=== PATIENT | female | born 1980 | race Caucasian/White ===

== ENCOUNTER → 2016-07-23 | Outpatient (CLI) | payer BC ==
[~2016-07-23] MED LIST: ADV250INH INH; ALBU17IN2 PO; MOTR200T44 PO; PRENTAB13 PO; TYLE325T5 PO
[2016-07-23 12:43] LABS: BASO % 0.2 % (0.0-1.0); EOS # 0.1 K/mm3 (0.0-0.50); EOS % 2.4 % (0.0-3.0); LARGE UNSTAINED CELL # 0.1 K/mm3 (0.0-0.4); LARGE UNSTAINED CELL % 2.2 % (0.0-4.0); LYMPH # 1.9 K/mm3 (1.5-4.5); LYMPH % 32.4 % (24.0-44.0); MEAN CORPUSCULAR HEMOGLOBIN 28.6 pg (27.0-33.0); MEAN CORPUSCULAR HGB CONC 32.9 g/dl (32.0-36.5); MEAN CORPUSCULAR VOLUME 87.1 fl (80.0-96.0); MONO # 0.4 K/mm3 (0.0-0.8); MONO % 6.2 % (0.0-5.0); NEUTROPHILS # 3.3 K/mm3 (1.8-7.7); NEUTROPHILS % 56.7 % (36.0-66.0); PLATELET COUNT, AUTOMATED 246 k/mm3 (150-450); RED CELL DISTRIBUTION WIDTH 14.1 % (11.5-14.5); WHITE BLOOD COUNT 5.8 K/mm3 (4.0-10.0)
[2016-07-23 13:32] LABS: HBsAg Prenatal NEGATIVE (NEGATIVE)
== END ==
LOC: M SMT 10:17
PROVIDERS: ATTEND Advanced Practice Midwife
DX: Z36 Encounter for antenatal screening of mother (principal); Z3A.00 Weeks of gestation of pregnancy not specified

== ENCOUNTER → 2016-08-01 | Outpatient (CLI) | payer BC | LOC: M SMT 08:31 | PROVIDERS: ATTEND Advanced Practice Midwife | DX: Z34.81 Encounter for supervision of other normal pregnancy, first trimester (principal) ==

== ENCOUNTER → 2016-10-17 | Outpatient (CLI) | payer MEDICAID ==
[~2016-10-17] MED LIST changes: -PRENTAB13 PO; +PRENTAB20 PO
--- NOTE | 2016-10-17 15:27 | REP ---
OBSTETRIC SONOGRAPHY: HISTORY: Supervision of for anatomy. FINDINGS: Scanning through the gravid uterus demonstrates a viable single intrauterine gestation in variable lie. motion is observed and heart rate is recorded at 147 beats per minute. A posterior grade 0 placenta is seen without evidence of previa or abruption. Amniotic fluid is subjectively normal. Closed cervical length measures 4.5 cm viewed transabdominally. No extrauterine abnormalities observed. Exam quality was inhibited by maternal body habitus. No anomaly is seen. spine, kidneys, four-chamber heart and outflow tract views are poorly seen due to maternal body habitus and position. The following additional anatomic structures are identified and felt to be sonographically unremarkable: cranium, choroid plexus, cavum, cerebellum and posterior fossa, face and profile, lungs, diaphragm, left-sided stomach, abdominal wall cord insertion, three-vessel umbilical cord, urinary bladder, upper and lower extremities. Biometry Chart: BPD 4.6 cm = 19 weeks 6 days HC 17.2 cm = 19 weeks 5 days AC 15.5 cm = 20 weeks 5 days FL 3.4 cm = 20 weeks 5 days HL 3.2 cm = 20 weeks 5 days CD 1.9 cm = 18 weeks 6 days HC/AC ratio normal 1.11. Cephalic index normal 0.74. Estimated weight 364 grams, 0 pounds 12 ounces, 66th percentile for 20 weeks 0 days. IMPRESSION: Viable single intrauterine gestation at 20 weeks 0 days by today's composite sonographic criteria. RO by today's sonography March 06, 2017. No anomalies seen. anatomic survey is incomplete as above. Signed by Dandy Segundo MD 10/17/2016 06:21 P
== END ==
LOC: M SMT 13:43
PROVIDERS: ATTEND Specialist
DX: Z36 Encounter for antenatal screening of mother (principal); Z3A.20 20 weeks gestation of pregnancy

== ENCOUNTER → 2016-11-06 | Outpatient (CLI) | payer MEDICAID ==
--- NOTE | 2016-11-06 16:40 | REP ---
Obstetric ultrasound for anatomy follow-up: The prior study of 10/17/2016 was adequately demonstrate the spine, kidneys, four-chamber view of the heart and cardiac outflow tracts. Study today is for follow-up of these structures. Remainder of the anatomy was unremarkable previously. There is a single intrauterine gestation. position is variable. There is motion. heart rate is 120 beats per minute. The pylorus placenta is posterior. There is no placenta previa or abruptio. Placenta demonstrates grade zero maturity. Subjectively amniotic fluid volume is normal. Cervix is 4.0 cm in length. Gestational age by the ultrasound today is 23 weeks 2 days with an RO of 03/03/2017. Gestational age by the first ultrasound during this gestation is 22-week 6 days. weight is 642 grams (1 pound, 6 ounces). This is the 77th percentile for 22 weeks 6 days. On the study today the four-chamber view of the heart and the cardiac right and left ventricular outflow tracts are adequately demonstrated and are unremarkable. The kidneys are adequately demonstrated and are unremarkable. The spine is again suboptimally demonstrated because of position. The remainder of the anatomy was unremarkable previously and is unremarkable today. Follow-up study of the spine might be considered. Sign taking Signed by Ritchie Dewey MD 11/06/2016 04:33 P
== END ==
LOC: M SMT 14:57
PROVIDERS: ATTEND Advanced Practice Midwife
DX: Z36 Encounter for antenatal screening of mother (principal); Z3A.22 22 weeks gestation of pregnancy

== ENCOUNTER → 2016-11-26 | Outpatient (CLI) | payer MEDICAID ==
--- NOTE | 2016-11-26 12:16 | REP ---
OB ULTRASOUND: Real-time sonographic evaluation of the gravid uterus performed. There is a single living intrauterine gestation. Estimated gestational age 26 weeks 1 day based on today's ultrasound EDC 03/03/2017. BPD 62 mm = 21 weeks 5 days HC 237 mm = 25 weeks 5 days AC 221 mm = 26 weeks 4 days Femur length 49 mm = 26 weeks 3 days HC/AC ratio 1.07 within normal range. Estimated weight 924 grams. Cervix closed and measures 5 cm in length. heart rate 140 beats per minute. SEEN/GROSSLY UNREMARKABLE Lateral ventricles Yes Posterior fossa No Upper lip Yes Four-chamber heart Yes LVOT Yes RVOT Yes Stomach Yes Cord insertion Yes Three vessel cord Yes Kidneys Yes Bladder Yes Spine No position: Vertex. Placenta: Posterior and grade 0 with no previa or abruption. Amniotic fluid: Within normal limits. Signed by Ritchie Mooney MD 11/26/2016 04:02 P
== END ==
LOC: M RAD 08:26
PROVIDERS: ATTEND Specialist
DX: Z36 Encounter for antenatal screening of mother (principal); Z3A.26 26 weeks gestation of pregnancy

== ENCOUNTER → 2016-12-19 | Outpatient (CLI) | payer MEDICAID ==
--- NOTE | 2016-12-19 10:34 | REP ---
FOLLOWUP OB ULTRASOUND: 12/19/2016 COMPARISON: 11/26/2016, 11/06/2016, 10/17/2016. CLINICAL HISTORY: Followup, incomplete anatomy screen. FINDINGS: There is a single intrauterine gestation in vertex position. The cervix is 3 cm long and closed. There is a posterior fundal grade 1 placenta without previa or abruption. Amniotic fluid volume is visually normal. The index measurement is 10.2 cm. Normal range 9.2 to 23.1. Largest fluid pocket is 4.9 cm, normal. Mid cord umbilical artery Doppler shows S/D ratio of 2.82 with normal forward diastolic flow and resistive index of 0.65, all normal. BIOMETRY: BPD 7.4 cm = 29 weeks 5 days HC 27.8 cm = 30 weeks 3 days AC 25.4 cm = 29 weeks 4 days FL 5.9 cm = 30 weeks 4 days HL 5.1 cm = 29 weeks 4 days This gives average ultrasound age of 30 weeks with EDC 02/27/2017. By initial ultrasound, she would be 29 weeks with EDC 03/06/2017. Estimated weight 1494 grams or 3 pounds 4 ounces is 64th percentile for dating based on initial ultrasound. Anatomy screen today shows cranial vault, cavum septum pellucidum, lungs, three-vessel cord, kidneys and bladder to be unremarkable. The anatomy screening is complete, except that the spine is still never optimally visualized in its entirety in transverse and longitudinal projections. Segments visible were grossly intact. heart rate 140 and regular. The cord is at least draped over the neck, cannot entirely exclude the possibility of a nuchal cord. IMPRESSION: 1. Single intrauterine gestation in vertex presentation with closed 3 cm long cervix, visually normal amniotic fluid volume and an index of 10.1, normal cord Doppler and heart rate of 140 BPM. Cervix 3 cm long and closed. 2. Average ultrasound age 30 weeks by today's study, 29 weeks by the initial exam with a known EDC of 03/06/2017. Estimated weight 64th percentile for that dating. 3. No visible anomalies but the anatomy screen is still incomplete in that the spine has not yet been fully evaluated in transverse and longitudinal projections despite multiple attempts. 4. Normal interval growth. Fundal grade 1 placenta without previa or abruption. Signed by Zander Guo MD 12/19/2016 11:40 A
== END ==
LOC: M LAB 08:56 → M RAD 08:56
PROVIDERS: ATTEND Specialist
DX: Z36 Encounter for antenatal screening of mother (principal); Z3A.30 30 weeks gestation of pregnancy

== ENCOUNTER → 2016-12-26 | Outpatient (CLI) | payer MEDICAID ==
[2016-12-26 14:38] LABS: BASO % 0.2 % (0.0-1.0); EOS # 0.1 K/mm3 (0.0-0.50); EOS % 1.5 % (0.0-3.0); LARGE UNSTAINED CELL # 0.1 K/mm3 (0.0-0.4); LYMPH # 1.2 K/mm3 (1.5-4.5); LYMPH % 16.9 % (24.0-44.0); MEAN CORPUSCULAR HEMOGLOBIN 30.8 pg (27.0-33.0); MEAN CORPUSCULAR HGB CONC 34.4 g/dl (32.0-36.5); MEAN CORPUSCULAR VOLUME 89.6 fl (80.0-96.0); MONO # 0.3 K/mm3 (0.0-0.8); MONO % 3.5 % (0.0-5.0); NEUTROPHILS # 5.6 K/mm3 (1.8-7.7); NEUTROPHILS % 76.9 % (36.0-66.0); PLATELET COUNT, AUTOMATED 236 k/mm3 (150-450); WHITE BLOOD COUNT 7.3 K/mm3 (4.0-10.0)
== END ==
LOC: M SMT 08:55
PROVIDERS: ATTEND Specialist
DX: Z36 Encounter for antenatal screening of mother (principal); Z3A.00 Weeks of gestation of pregnancy not specified

== ENCOUNTER → 2016-12-28 | Outpatient (CLI) | payer MEDICAID | LOC: M LAB 08:10 | PROVIDERS: ATTEND Obstetrics & Gynecology | DX: O09.523 Supervision of elderly multigravida, third trimester (principal); Z3A.00 Weeks of gestation of pregnancy not specified ==

== ENCOUNTER → 2017-02-01 | Outpatient (REF) | payer OTHER | LOC: M LAB REF 17:08 | PROVIDERS: ATTEND Obstetrics & Gynecology | DX: Z36.85 Encounter for antenatal screening for Streptococcus B (principal); Z3A.00 Weeks of gestation of pregnancy not specified ==

== ENCOUNTER 2017-02-26 11:27 | Inpatient (IN) | payer OTHER ==
[~2017-02-26] VITALS: Ht 149.9 cm; Wt 114.9 kg
[2017-02-26 11:57] VITALS: BP 114/59
[2017-02-26] MEDS ORDERED: BREO1INH INH (12:19)
--- NOTE | 2017-02-26 13:29 | HPE ---
DATE OF ADMISSION: 02/26/2017 A 36-year-old G5, P2-2-0-4 female at 39-2/7 weeks' gestation by last menstrual period (LMP) consistent with 7-week ultrasound, estimated date of confinement (EDC) 03/03/2017, presents for labor induction. The patient has occasional contractions. She denies vaginal bleeding. COURSE: The patient initiated care at 8 weeks' gestation on 07/24/2016. Her first-trimester blood pressure was 126/76. Weight was 241 pounds. The patient had no complications. OBSTETRICAL HISTORY: 1. 2007, 35-week vaginal delivery, 4-pound 11-ounce female infant. 2. 2009, 39-week vaginal delivery, 7-pound 11-ounce female infant. 3. 2010, 40-week vaginal delivery, 8-pound 4-ounce male . 4. 2013, 35-week vaginal delivery, 5-pound 9-ounce female infant. MEDICAL HISTORY: Noncontributory. SURGICAL HISTORY: None. ALLERGIES: None. SOCIAL HISTORY: The patient is . Denies cigarettes, alcohol, or drug use. FAMILY HISTORY: Noncontributory. PHYSICAL EXAMINATION: Blood pressure 122/74, weight 256. She appears comfortable. HEAD AND NECK EXAMINATION: Normal. LUNGS: Clear. HEART: Regular rate and rhythm. ABDOMEN: Nontender, gravid. heart tones category 1. STERILE VAGINAL EXAMINATION: 1 cm, 50% effaced, -2 station, vertex. Contractions irregular. EXTREMITIES: Nontender. LABORATORIES: Blood type O positive, rubella immune, rapid plasma reagin (RPR) nonreactive. Hepatitis B and C negative. HIV negative. Group B streptococcus (GBS) positive on 02/01/2017. ASSESSMENT: A 36-year-old G5, P2-2-0-4 female at 39-2/7 weeks' gestation presents for labor induction. Risks of induction were discussed.
[2017-02-26 13:40] LABS: MEAN CORPUSCULAR HEMOGLOBIN 28.6 pg (27.0-33.0); MEAN CORPUSCULAR HGB CONC 32.5 g/dl (32.0-36.5); MEAN CORPUSCULAR VOLUME 88.1 fl (80.0-96.0); PLATELET COUNT, AUTOMATED 263 10^3/uL (150-450); RED CELL DISTRIBUTION WIDTH 14.6 % (11.5-14.5); WHITE BLOOD COUNT 8.5 10^3/uL (4.0-10.0)
[2017-02-26 14:05] VITALS: BP 94/53
[2017-02-26] MEDS: miSOPROStol 50 MCG 1/2 TAB (S0191) SL SCH ×2 (14:11→18:24)
[2017-02-26 16:09] VITALS: BP 140/63
[2017-02-26 16:16] VITALS: BP 136/72
[2017-02-26 17:21] VITALS: BP 134/63
[2017-02-26 18:22] VITALS: BP 136/84
[2017-02-26] MEDS ORDERED: PENICILLIN G POTASSIUM IV 5 MU in D5W MINI-BAG PLUS 100 ML IV STA (21:17)
[2017-02-26] MEDS ORDERED: OXYTOCIN 30 UNITS IN 0.9% NaCl 500ML IV BAG (J2590) As Ordered ONE (21:22)
[2017-02-26] MEDS ORDERED: MEASLES,MUMPS,RUBELLA VACCINE INJ (MMR-II) (90707) SC SCH (22:15)
[2017-02-26] MEDS ORDERED: DOCUSATE SODIUM 100 MG CAP PO PRN (22:15)
[2017-02-26] MEDS ORDERED: ACETAMINOPHEN 500 MG TAB PO PRN (22:15)
[2017-02-26] MEDS ORDERED: DIBUCAINE 1% OINTMENT 30GM TOP PRN (22:15)
[2017-02-26] MEDS ORDERED: METHYLERGONOVINE MALEATE 0.2 MG TAB PO PRN (22:15)
[2017-02-26] MEDS ORDERED: ONDANSETRON 4MG/2ML VIAL (J2405) IV PRN (22:15)
[2017-02-26] MEDS ORDERED: OXYTOCIN DRIP 30 UNITS in APPROPRIATE DILUENT 1 EA IV ONE (22:15)
[2017-02-26] MEDS ORDERED: RHOGAM 300 MCG (1500 IU) INJ (J2790) IM SCH (22:15)
[2017-02-26] MEDS ORDERED: IBUPROFEN 800 MG TAB PO PRN (22:15)
[2017-02-27] MEDS ORDERED: PENICILLIN G POTASSIUM IV 2.5 MU in APPROPRIATE DILUENT 1 EA IV SCH (01:00)
[2017-02-27 06:00] VITALS: BP 128/71
[2017-02-27] MEDS: PRENATAL VITAMINS CHEWABLE TABLET PO SCH (08:22)
--- NOTE | 2017-02-27 12:34 | DN ---
DATE: 02/26/2017 PREDELIVERY DIAGNOSIS: 39 weeks, labor induction. POSTDELIVERY DIAGNOSIS: Delivered. PROCEDURE: Spontaneous vaginal delivery. X [employer]AY EXAM[employer]: Dr. Ayan Sprague ANESTHESIA: None. ESTIMATED BLOOD LOSS: 300 mL. FINDINGS: 6 pound 9 ounce female . scores 7 and 9. DELIVERY SUMMARY: After a short second stage, the patient had a spontaneous delivery of a 6 pound 9 ounce female , scores 7 and 9 with no anesthesia. Tight nuchal cord times one was clamped and cut. Shoulders delivered with ease. The infant was handed to the mother and cried spontaneously. Placenta delivered spontaneously and appeared to be intact. The patient received IV Pitocin immediately after delivery of the placenta. Small first degree vaginal laceration, did not require repair. Sponge counts were correct.
[2017-02-27 17:46] VITALS: BP 130/87
[2017-02-28 06:23] VITALS: BP 124/83
[2017-02-28] MEDS: PRENATAL VITAMINS CHEWABLE TABLET PO SCH (08:18)
[2017-02-28] MEDS ORDERED: MOTR200T44 PO (11:01)
[2017-02-28] MEDS ORDERED: TYLE325T5 PO (11:01)
== END 2017-02-28 11:45 | disposition home or self-care (01) | DRG 560 ==
LOC: M LDI 11:27 → M OBS 02-27 00:01
PROVIDERS: ADMIT Specialist; ATTEND Specialist
PROC: 10E0XZZ Delivery of Products of Conception, External Approach (ICD-10-PCS; principal; 2017-02-26)
PROC: 3E0P7GC Introduction of Other Therapeutic Substance into Female Reproductive, Via Natural or Artificial Opening (ICD-10-PCS; 2017-02-26)
DX: O99.52 Diseases of the respiratory system complicating childbirth (principal); Z3A.39 39 weeks gestation of pregnancy; O99.824 Streptococcus B carrier state complicating childbirth; J45.909 Unspecified asthma, uncomplicated; Z37.0 Single live birth

== ENCOUNTER 2018-03-07 19:59 | Emergency (ER) | payer SELFPAY, MEDICAID, OTHER ==
[2018-03-07] MEDS ORDERED: diphenhydrAMINE INJ 50MG/ML VIAL (J1200) As Ordered (20:09)
[2018-03-07] MEDS ORDERED: methylPREDNISolone INJ 125 MG/2 ML VIAL (J2930) As Ordered (20:09)
[2018-03-07] MEDS: methylPREDNISolone INJ 125 MG/2 ML VIAL (J2930) IV (20:15)
[2018-03-07] MEDS: diphenhydrAMINE INJ 50MG/ML VIAL (J1200) IV (20:18)
[2018-03-07] MEDS: EPINEPHrine INJ 1 MG/ML 1ML AMP IM (20:20)
[2018-03-07] MEDS: FAMOTIDINE INJ 20MG/2ML VIAL (S0028) IVP (20:24)
[2018-03-07 21:04] LABS: BASO % 0.4 % (0.0-1.0); EOS # 0.3 10^3/uL (0.0-0.50); EOS % 3.2 % (0.0-3.0); HEMATOCRIT 39.7 % (36.0-47.0); HEMOGLOBIN 12.3 g/dl (12.0-15.5); IMMATURE GRANULOCYTE % 0.4 % (0-3.0); LYMPH # 3.5 10^3/uL (1.5-4.5); LYMPH % 35.7 % (24.0-44.0); MEAN CORPUSCULAR HEMOGLOBIN 25.7 pg (27.0-33.0); MEAN CORPUSCULAR VOLUME 82.9 fl (80.0-96.0); MONO # 0.7 10^3/uL (0.0-0.8); MONO % 7.1 % (0.0-5.0); NEUTROPHILS # 5.3 10^3/uL (1.8-7.7); NEUTROPHILS % 53.2 % (36.0-66.0); PLATELET COUNT, AUTOMATED 342 10^3/uL (150-450); RED BLOOD COUNT 4.79 10^6/uL (4.00-5.40); RED CELL DISTRIBUTION WIDTH 15.4 % (11.5-14.5); WHITE BLOOD COUNT 9.9 10^3/uL (4.0-10.0)
[2018-03-07 21:25] LABS: ALBUMIN 3.5 GM/DL (3.2-5.2); ALBUMIN/GLOBULIN RATIO 0.92 (1.00-1.93); ALKALINE PHOSPHATASE 76 U/L (45-117); ALT/SGPT 22 U/L (12-78); ANION GAP 4 MEQ/L (8-16); AST/SGOT 10 U/L (7-37); BILIRUBIN,DIRECT < 0.1 MG/DL (0.0-0.2); BILIRUBIN,TOTAL 0.3 MG/DL (0.2-1.0); BLOOD UREA NITROGEN 14 MG/DL (7-18); CALCIUM LEVEL 8.8 MG/DL (8.5-10.1); CARBON DIOXIDE LEVEL 28 MEQ/L (21-32); CHLORIDE LEVEL 105 MEQ/L (98-107); CREATININE FOR GFR 0.72 MG/DL (0.55-1.30); GLOMERULAR FILTRATION RATE > 60.0 (>60); GLUCOSE, FASTING 91 MG/DL (70-100); POTASSIUM SERUM 3.7 MEQ/L (3.5-5.1); SODIUM LEVEL 137 MEQ/L (136-145); TOTAL PROTEIN 7.3 GM/DL (6.4-8.2)
[2018-03-13 00:07] LABS: TRYPTASE 1.2 ug/L (2.2-13.2)
== END 2018-03-07 23:18 | disposition home or self-care (01) ==
LOC: M ED 19:59
DX: T78.1XXA Other adverse food reactions, not elsewhere classified, initial encounter (principal)
CPT/HCPCS: J1200

== ENCOUNTER 2019-05-03 11:45 | Emergency (ER) | payer BC, OTHER ==
[~2019-05-03] VITALS: Ht 149.9 cm; Wt 115.9 kg
[~2019-05-03 11:45] MED LIST changes: +BENA25CA4 PO; +BREO1INH INH; +EPIP0.3I2 IM; +PRED20TA PO
[2019-05-03 12:20] LABS: BASO % 0.4 % (0.0-1.0); EOS # 0.4 10^3/uL (0.0-0.5); EOS % 4.8 % (0.0-3.0); HEMATOCRIT 42.8 % (36.0-47.0); HEMOGLOBIN 12.3 g/dl (12.0-15.5); LYMPH # 2.4 10^3/uL (1.5-5.0); LYMPH % 32.4 % (24.0-44.0); MEAN CORPUSCULAR HGB CONC 28.7 g/dl (32.0-36.5); MEAN CORPUSCULAR VOLUME 83.4 fl (80.0-96.0); MONO # 0.4 10^3/uL (0.0-0.8); MONO % 5.9 % (0.0-5.0); NEUTROPHILS # 4.1 10^3/uL (1.5-8.5); NEUTROPHILS % 56.1 % (36.0-66.0); PLATELET COUNT, AUTOMATED 308 10^3/uL (150-450); RED BLOOD COUNT 5.13 10^6/uL (4.00-5.40); WHITE BLOOD COUNT 7.3 10^3/uL (4.0-10.0)
[2019-05-03] MEDS ORDERED: MAG SULF 1GM/100ML (MAG RUN) 1 GM in IV 1 EA IV ONE (12:30)
[2019-05-03 12:33] LABS: VENOUS BASE EXCESS 2.5 (-2.0-2.0); VENOUS HCO3 29.6 MEQ/L (23.0-27.0); VENOUS O2 SATURATION 65.4 % (60.0-80.0); VENOUS PARTIAL PRESSURE CO2 57.2 mmHg (38.0-50.0); VENOUS PARTIAL PRESSURE O2 37.1 mmHg (30.0-50.0); VENOUS PH 7.332 UNITS (7.330-7.430); VENOUS STANDARD HCO3 25.9 MEQ/L; VENOUS TOTAL CO2 31.4 MEQ/L (24.0-28.0)
[2019-05-03] MEDS: IPRATROPIUM 0.5MG/ALBUTEROL 2.5MG INH SOL UD 3ML (DUONEB)(J7620) NEB SCH ×3 (12:38→13:44)
[2019-05-03 12:47] LABS: HCG, SERUM QUALITATIVE NEGATIVE (NEGATIVE)
[2019-05-03 12:50] LABS: ALBUMIN 3.8 GM/DL (3.2-5.2); ALT/SGPT 19 U/L (12-78); BILIRUBIN,DIRECT 0.1 MG/DL (0.0-0.2); BILIRUBIN,TOTAL 0.5 MG/DL (0.2-1.0); BLOOD UREA NITROGEN 8 MG/DL (7-18); CALCIUM LEVEL 8.7 MG/DL (8.5-10.1); CARBON DIOXIDE LEVEL 31 MEQ/L (21-32); CHLORIDE LEVEL 105 MEQ/L (98-107); CK-MB VALUE MASS 1.4 NG/ML (<3.6); CPK CREATINE PHOSPHOKINASE 80 U/L (26-192); CREATININE FOR GFR 0.65 MG/DL (0.55-1.30); GLOMERULAR FILTRATION RATE > 60.0 (>60); GLUCOSE, FASTING 101 MG/DL (70-100); MB/CK RELATIVE INDEX 1.75 (< OR =4); POTASSIUM SERUM 3.9 MEQ/L (3.5-5.1); SODIUM LEVEL 141 MEQ/L (136-145); TOTAL PROTEIN 7.5 GM/DL (6.4-8.2); TROPONIN I < 0.02 NG/ML (< 0.10)
[2019-05-03] MEDS ORDERED: IPRA0.00 NEB ×2 (14:15→14:30)
[2019-05-03] MEDS ORDERED: PRED20TA PO ×2 (14:15→14:30)
--- NOTE | 2019-05-03 14:23 | REP ---
AP PORTABLE CHEST: 05/03/2019. Clinical history: Dyspnea and cough. Comparison PA chest 11/02/2013. Findings: AP semi-erect portable chest shows the lungs well inflated. CP angles are sharply defined without effusion, infiltrate, atelectasis or mass evident. There is no lateral pleural thickening, apical scarring or pneumothorax. Heart not enlarged. Aorta and airway intact. No widening of the mediastinum. Bony thorax unremarkable. Impression: 1. Negative AP portable semi-erect chest. No infiltrate, effusion, cardiomegaly or edema. Electronically Signed by Zander Guo MD 05/03/2019 08:31 P
[2019-05-03 15:00] VITALS: BP 118/57
--- NOTE | 2019-05-03 19:28 | ECGEPIP ---
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
== END 2019-05-03 15:13 | disposition home or self-care (01) ==
LOC: EDBD 11:45 → M ED 11:45
DX: J45.901 Unspecified asthma with (acute) exacerbation (principal); Z83.6 Family history of other diseases of the respiratory system; Z88.1 Allergy status to other antibiotic agents; Z88.8 Allergy status to other drugs, medicaments and biological substances; Z91.018 Allergy to other foods
CPT/HCPCS: 36415; 71045; 80048; 80076; 82550; 82553; 82803; 84703; 85025; 87040; 93005; 93041; 94640; 96360; 99285; J3475

== ENCOUNTER → 2020-04-25 | Outpatient (CLI) | payer OTHER ==
[~2020-04-25] MED LIST changes: +IPRA0.00 NEB
[2020-04-25 15:42] LABS: BASO % 0.3 % (0.0-1.0); EOS # 0.1 10^3/uL (0.0-0.5); EOS % 1.7 % (0.0-3.0); HEMATOCRIT 43.8 % (36.0-47.0); HEMOGLOBIN 12.7 g/dl (12.0-15.5); LYMPH # 2.3 10^3/uL (1.5-5.0); LYMPH % 30.3 % (24.0-44.0); MEAN CORPUSCULAR HEMOGLOBIN 24.8 pg (27.0-33.0); MEAN CORPUSCULAR VOLUME 85.5 fl (80.0-96.0); MONO # 0.5 10^3/uL (0.0-0.8); MONO % 6.8 % (0.0-5.0); NEUTROPHILS # 4.5 10^3/uL (1.5-8.5); NEUTROPHILS % 60.6 % (36.0-66.0); PLATELET COUNT, AUTOMATED 336 10^3/uL (150-450); RED BLOOD COUNT 5.12 10^6/uL (4.00-5.40); WHITE BLOOD COUNT 7.5 10^3/uL (4.0-10.0)
[2020-04-25 16:02] LABS: HEMOGLOBIN A1c 6.1 %
[2020-04-25 16:12] LABS: ALBUMIN 3.8 GM/DL (3.2-5.2); ALT/SGPT 24 U/L (12-78); BILIRUBIN,TOTAL 0.5 MG/DL (0.2-1.0); BLOOD UREA NITROGEN 11 MG/DL (7-18); CALCIUM LEVEL 9.4 MG/DL (8.5-10.1); CARBON DIOXIDE LEVEL 32 MEQ/L (21-32); CHLORIDE LEVEL 102 MEQ/L (98-107); CHOLESTEROL LEVEL 173 MG/DL (<200); CHOLESTEROL RISK RATIO 3.089 (<5); CREATININE FOR GFR 0.75 MG/DL (0.55-1.30); FREE T4 0.81 NG/DL (0.76-1.46); GLOMERULAR FILTRATION RATE > 60.0 (>58); GLUCOSE, FASTING 90 MG/DL (70-100); HDL CHOLESTEROL 56 MG/DL (>40); LDL CHOLESTEROL 96 MG/DL (<100); NON-HDL-C 117 MG/DL; POTASSIUM SERUM 4.7 MEQ/L (3.5-5.1); SODIUM LEVEL 138 MEQ/L (136-145); TOTAL PROTEIN 7.7 GM/DL (6.4-8.2); TRIGLYCERIDES LEVEL 107 MG/DL (<150)
== END ==
LOC: M PLALAB 12:17
PROVIDERS: ATTEND Physician Assistant
DX: Z13.220 Encounter for screening for lipoid disorders (principal)

== ENCOUNTER → 2022-04-05 | Outpatient (CLI) | payer OTHER ==
[2022-04-05 10:26] LABS: BASO % 0.6 % (0.0-1.0); EOS # 0.2 10^3/uL (0.0-0.5); EOS % 2.8 % (0.0-3.0); HEMATOCRIT 42.6 % (36.0-47.0); LYMPH # 1.8 10^3/uL (1.5-5.0); LYMPH % 33.3 % (24.0-44.0); MEAN CORPUSCULAR HGB CONC 30.5 g/dl (32.0-36.5); MEAN CORPUSCULAR VOLUME 88.4 fl (80.0-96.0); MONO # 0.4 10^3/uL (0.0-0.8); MONO % 6.6 % (2.0-8.0); NEUTROPHILS % 56.3 % (36.0-66.0); PLATELET COUNT, AUTOMATED 311 10^3/uL (150-450); RED BLOOD COUNT 4.82 10^6/uL (4.00-5.40); WHITE BLOOD COUNT 5.3 10^3/uL (4.0-10.0)
[2022-04-05 10:53] LABS: ALBUMIN 3.6 G/DL (3.2-5.2); ALKALINE PHOSPHATASE 64 U/L (46-116); ALT/SGPT 20 U/L (7.0-40); AST/SGOT 15 U/L (<34); BILIRUBIN,TOTAL 0.7 MG/DL (0.3-1.2); BLOOD UREA NITROGEN 13 MG/DL (9-23); CALCIUM LEVEL 9.4 MG/DL (8.5-10.1); CARBON DIOXIDE LEVEL 30 MMOL/L (20-31); CHLORIDE LEVEL 105 MMOL/L (98-107); CHOLESTEROL LEVEL 157 MG/DL (<200); CREATININE FOR GFR 0.69 MG/DL (0.55-1.30); GLOMERULAR FILTRATION RATE > 60.0 (>58); GLUCOSE, FASTING 92 MG/DL (60-100); HDL CHOLESTEROL 37.3 MG/DL (>40); LDL CHOLESTEROL 105.5 MG/DL (<100); NON-HDL-C 120 MG/DL; SODIUM LEVEL 141 MMOL/L (136-145); TRIGLYCERIDES LEVEL 71 MG/DL (<150)
[2022-04-05 10:54] LABS: TOTAL 25(OH) VITAMIN D 27.8 NG/ML (20.0-100.0)
[2022-04-05 11:46] LABS: HEMOGLOBIN A1c 5.7 % (4.0-6.0)
== END ==
LOC: M LAB 09:52
PROVIDERS: ATTEND Nurse Practitioner Adult Health
DX: R73.01 Impaired fasting glucose (principal); E55.9 Vitamin D deficiency, unspecified

== ENCOUNTER → 2023-02-22 | Outpatient (REF) | payer OTHER | LOC: M PLALAB 12:27 | PROVIDERS: ATTEND Nurse Practitioner Family | DX: Z12.4 Encounter for screening for malignant neoplasm of cervix (principal) | CPT/HCPCS: 87624; G0123 ==

== ENCOUNTER → 2024-03-26 | Outpatient (CLI) | payer OTHER ==
[~2024-03-26] MED LIST changes: -ADV250INH INH; +ADVA1AER9 INH
== END ==
LOC: M WHC 11:54
PROVIDERS: ATTEND Nurse Practitioner Family
DX: Z12.31 Encounter for screening mammogram for malignant neoplasm of breast (principal); N92.0 Excessive and frequent menstruation with regular cycle; Z53.9 Procedure and treatment not carried out, unspecified reason

== ENCOUNTER → 2024-03-26 | Outpatient (REF) | payer OTHER ==
[2024-03-26 16:50] LABS: Trichomonas vaginalis (AMP) NOT DETECTED (NEGATIVE)
[2024-03-26 17:13] LABS: GC DNA AMPLIFICATION NEGATIVE (NEGATIVE)
== END ==
LOC: M SFHCWAGY 14:59
PROVIDERS: ATTEND Nurse Practitioner Family
DX: Z11.3 Encounter for screening for infections with a predominantly sexual mode of transmission (principal)

== ENCOUNTER → 2024-03-26 | Outpatient (CLI) | payer OTHER | LOC: M WHC 10:58 | PROVIDERS: ATTEND Nurse Practitioner Family | DX: Z12.31 Encounter for screening mammogram for malignant neoplasm of breast (principal) ==

== ENCOUNTER → 2024-05-05 | Outpatient (CLI) | payer OTHER ==
[2024-05-05 15:20] LABS: THYROID STIMULATING HORMONE 2.236 uIU/ML (0.55-4.78)
[2024-05-05 15:21] LABS: FERRITIN 10.6 NG/ML (7.3-270.7); PERCENT SATURATION 11.4 % (13.2-45.0)
[2024-05-05 15:32] LABS: BASO % 0.5 % (0.0-1.0); EOS # 0.1 10^3/uL (0.0-0.5); EOS % 2.2 % (0.0-3.0); HEMATOCRIT 45.2 % (36.0-47.0); HEMOGLOBIN 13.3 g/dl (12.0-15.5); LYMPH # 1.7 10^3/uL (1.5-5.0); LYMPH % 29.6 % (24.0-44.0); MEAN CORPUSCULAR HEMOGLOBIN 26.5 pg (27.0-33.0); MEAN CORPUSCULAR HGB CONC 29.4 g/dl (32.0-36.5); MONO # 0.4 10^3/uL (0.0-0.8); MONO % 6.8 % (2.0-8.0); NEUTROPHILS # 3.6 10^3/uL (1.5-8.5); NEUTROPHILS % 60.6 % (36.0-66.0); PLATELET COUNT, AUTOMATED 330 10^3/uL (150-450); RED BLOOD COUNT 5.02 10^6/uL (4.00-5.40); WHITE BLOOD COUNT 5.9 10^3/uL (4.0-10.0)
[2024-05-05 16:00] LABS: HEMOGLOBIN A1c 6.2 % (4.0-6.0)
== END ==
LOC: M PLALAB 10:21
PROVIDERS: ATTEND Nurse Practitioner Family
DX: N92.0 Excessive and frequent menstruation with regular cycle (principal)

== ENCOUNTER → 2024-05-05 | Outpatient (CLI) | payer OTHER ==
[2024-05-05 15:21] LABS: FREE T4 1.05 NG/DL (0.89-1.76)
[2024-05-05 15:22] LABS: ALBUMIN 3.5 G/DL (3.2-5.2); ALKALINE PHOSPHATASE 75 U/L (35-104); ALT/SGPT 20 U/L (7.0-40); AST/SGOT 11 U/L (<34); BILIRUBIN,TOTAL 0.5 MG/DL (0.3-1.2); BLOOD UREA NITROGEN 13 MG/DL (9-23); CALCIUM LEVEL 8.8 MG/DL (8.5-10.1); CARBON DIOXIDE LEVEL 31 MMOL/L (20-31); CHLORIDE LEVEL 103 MMOL/L (98-107); CHOLESTEROL LEVEL 195 MG/DL (<200); CHOLESTEROL RISK RATIO 3.57 (<5); CREATININE FOR GFR 0.65 MG/DL (0.55-1.30); GLOMERULAR FILTRATION RATE > 60.0 (>58); GLUCOSE, FASTING 92 MG/DL (60-100); HDL CHOLESTEROL 54.5 MG/DL (>40); LDL CHOLESTEROL 122.7 MG/DL (<100); NON-HDL-C 140.5 MG/DL; POTASSIUM SERUM 4.3 MMOL/L (3.5-5.1); SODIUM LEVEL 142 MMOL/L (136-145); TOTAL 25(OH) VITAMIN D 28.7 NG/ML (20.0-100.0); TOTAL PROTEIN 7.2 G/DL (5.7-8.2); TRIGLYCERIDES LEVEL 89 MG/DL (<150)
[2024-05-05 15:33] LABS: BASO % 0.3 % (0.0-1.0); EOS # 0.1 10^3/uL (0.0-0.5); EOS % 2.1 % (0.0-3.0); HEMATOCRIT 42.4 % (36.0-47.0); HEMOGLOBIN 12.8 g/dl (12.0-15.5); LYMPH # 1.8 10^3/uL (1.5-5.0); MEAN CORPUSCULAR HEMOGLOBIN 26.4 pg (27.0-33.0); MEAN CORPUSCULAR HGB CONC 30.2 g/dl (32.0-36.5); MEAN CORPUSCULAR VOLUME 87.4 fl (80.0-96.0); MONO # 0.4 10^3/uL (0.0-0.8); MONO % 6.7 % (2.0-8.0); NEUTROPHILS # 3.9 10^3/uL (1.5-8.5); NEUTROPHILS % 62.6 % (36.0-66.0); PLATELET COUNT, AUTOMATED 331 10^3/uL (150-450); RED BLOOD COUNT 4.85 10^6/uL (4.00-5.40); WHITE BLOOD COUNT 6.3 10^3/uL (4.0-10.0)
[2024-05-05 18:31] LABS: HEMOGLOBIN A1c 6.2 % (4.0-6.0)
== END ==
LOC: M PLALAB 10:19
PROVIDERS: ATTEND Nurse Practitioner Adult Health
DX: R73.01 Impaired fasting glucose (principal); J45.40 Moderate persistent asthma, uncomplicated; E55.9 Vitamin D deficiency, unspecified; E66.01 Morbid (severe) obesity due to excess calories

== ENCOUNTER → 2025-01-15 | Outpatient (CLI) | payer OTHER ==
[2025-01-15 15:25] LABS: BASO # 0.0 10^3/uL (0.0-0.2); BASO % 0.2 % (0.0-1.0); EOS # 0.0 10^3/uL (0.0-0.5); EOS % 0.1 % (0.0-3.0); LYMPH # 1.2 10^3/uL (1.5-5.0); LYMPH % 8.6 % (24.0-44.0); MONO # 0.3 10^3/uL (0.0-0.8); MONO % 2.1 % (2.0-8.0); NEUTROPHILS # 11.8 10^3/uL (1.5-8.5); NEUTROPHILS % 87.5 % (36.0-66.0); PLATELET COUNT, AUTOMATED 354 10^3/uL (150-450)
[2025-01-15 15:55] LABS: CALCIUM LEVEL 8.6 MG/DL (8.5-10.1); CARBON DIOXIDE LEVEL 31 MMOL/L (20-31); CHLORIDE LEVEL 102 MMOL/L (98-107); CREATININE FOR GFR 0.64 MG/DL (0.55-1.30); GLOMERULAR FILTRATION RATE > 90.0 (>58); POTASSIUM SERUM 4.1 MMOL/L (3.5-5.1); SODIUM LEVEL 143 MMOL/L (136-145)
[2025-01-15 15:57] LABS: FREE T4 1.23 NG/DL (0.89-1.76)
== END ==
LOC: M LAB 14:53
PROVIDERS: ATTEND Nurse Practitioner Adult Health
DX: R60.0 Localized edema (principal)

== ENCOUNTER → 2025-03-19 | Outpatient (CLI) | payer OTHER | LOC: M CARPUL 08:31 | PROVIDERS: ATTEND Nurse Practitioner Adult Health | DX: R01.1 Cardiac murmur, unspecified (principal) ==